=== PATIENT | female | born 1995 | race Caucasian/White ===

== ENCOUNTER 2021-10-30 12:51 | Outpatient (CLI) | payer OTHER | END 2021-10-30 12:52 | disposition home or self-care (01) | LOC: CSHULT 12:51 | PROVIDERS: ATTEND Student in an Organized Health Care Education/Training Program | DX: K80.20 Calculus of gallbladder without cholecystitis without obstruction (principal); K76.0 Fatty (change of) liver, not elsewhere classified | CPT/HCPCS: 76705 ==

== ENCOUNTER 2021-11-13 07:45 | Outpatient (CLI) | payer OTHER ==
[2021-11-13] MEDS ORDERED: Iopamidol 300 61% 100 ML VIAL FS ONE (12:38)
== END 2021-11-13 07:46 | disposition home or self-care (01) ==
LOC: CSHCT 07:45
PROVIDERS: ATTEND Surgery
DX: K80.20 Calculus of gallbladder without cholecystitis without obstruction (principal)
CPT/HCPCS: 74160; Q9967